=== PATIENT | male | born 1965 | race Caucasian/White ===

== ENCOUNTER → 2023-10-19 08:12 | Outpatient (REF) | payer OTHER, SELFPAY | LOC: PAVMRI 08:12 | PROVIDERS: ATTENDING PHYSICIAN Internal Medicine Cardiovascular Disease; FAMILY PHYSICIAN Internal Medicine | DX: I42.9 Cardiomyopathy, unspecified (principal) | CPT/HCPCS: 75561; 75565; A9585 ==

== ENCOUNTER 2025-01-01 06:18 | Day surgery (SDC) | payer OTHER, SELFPAY | END 2025-01-01 11:33 | disposition home or self-care (01) | LOC: GI 06:18 | PROVIDERS: ATTENDING PHYSICIAN Internal Medicine Gastroenterology | DX: Z12.11 Encounter for screening for malignant neoplasm of colon (principal); K64.8 Other hemorrhoids | CPT/HCPCS: G0121 ==